=== PATIENT | male | born 1960 | race Caucasian/White ===

== ENCOUNTER 2018-11-27 13:04 | Emergency (ER) | payer OTHER ==
[2018-11-27] MEDS: CYCLOBENZAPRINE 10 MG TAB PO (14:01)
[2018-11-27] MEDS: KETOROLAC 15 MG INJ IV ×2 (14:02→15:28)
== END 2018-11-27 17:15 | disposition home or self-care (01) ==
LOC: E/R 13:04
DX: M54.9 Dorsalgia, unspecified (principal); M54.30 Sciatica, unspecified side; Z87.891 Personal history of nicotine dependence
CPT/HCPCS: 72131; 80048; 85025; 85651; 86140; 96374; 96376; 99285-25